=== PATIENT | male | born 2000 | race Hispanic/Latino ===

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

== ENCOUNTER 2022-03-31 23:11 | Emergency (ER) | payer OTHER ==
[~2022-03-31] VITALS: Ht 162.6 cm; Wt 61.8 kg
[~2022-03-31 23:11] MED LIST changes: +ONDA4TAB6 PO
[2022-04-01] MEDS ORDERED: KETO10TAB PO (02:59)
[2022-04-01] MEDS ORDERED: KETOROLAC TROMETHAMINE 10 MG TAB PO ONE (03:00)
[2022-04-01 03:19] VITALS: BP 137/92
== END 2022-04-01 03:20 | disposition home or self-care (01) ==
LOC: M ED 23:11
DX: M62.830 Muscle spasm of back (principal); V49.40XA Driver injured in collision with unspecified motor vehicles in traffic accident, initial encounter; Z79.899 Other long term (current) drug therapy